=== PATIENT | male | born 1990 | race Native Hawaiian/Other Pacific Islander ===

== ENCOUNTER 2016-04-08 18:11 | Inpatient (IN) | payer OTHER ==
[~2016-04-08] VITALS: Ht 170.2 cm; Wt 64.0 kg
[2016-04-08 18:29] VITALS: BP 112/77; PULSE 67; RESP 16; TEMP 98.6; O2SAT 98
[2016-04-08] MEDS ORDERED: SODIUM CHLORIDE 0.9% FLUSH 5 ML FLUSH IVF PRN (18:45)
[2016-04-08] MEDS ORDERED: MORPHINE SULFATE 4 MG/ML INJ IV ONE (18:45)
[2016-04-08] MEDS ORDERED: ONDANSETRON HCL 4 MG/2 ML VIAL IV PUSH ONE (18:45)
[2016-04-08 19:10] VITALS: BP 124/68; PULSE 60; RESP 16; TEMP 97.8; O2SAT 98; O2SAT 99
[2016-04-08 19:19] LABS: AUTOMATED NEUTROPHIL # 2.4 TH/MM3 (1.8-7.7); BASOPHIL # 0.1 TH/MM3 (0-0.2); BASOPHIL % 1.6 % (0.0-2.0); EOSINOPHIL # 0.2 TH/MM3 (0-0.4); EOSINOPHIL % 3.7 % (0.0-4.0); HEMATOCRIT 42.1 % (39.0-51.0); HEMO FLAGS DIFF FINAL; LYMPH % 38.4 % (9.0-44.0); MEAN CELL VOLUME 88.1 FL (80.0-100.0); MEAN CORPUSCULAR HEMOGLOBIN 30.3 PG (27.0-34.0); MEAN CORPUSCULAR HGB CONC 34.4 % (32.0-36.0); NEUT % 47.3 % (16.0-70.0); PLATELET COUNT 184 TH/MM3 (150-450); RED BLOOD COUNT 4.78 MIL/MM3 (4.50-5.90); RED CELL DISTRIBUTION WIDTH 12.2 % (11.6-17.2); WHITE BLOOD COUNT 5.2 TH/MM3 (4.0-11.0)
--- NOTE | 2016-04-08 19:24 | RADHPO ---
EXAM DATE/TIME: 04/08/2016 18:50 [facility] COMPARISON: No previous studies available for comparison. INDICATIONS : Short of breath. MEDICAL HISTORY : None. SURGICAL HISTORY : None. ENCOUNTER: Initial ACUITY: 1 day PAIN SCORE: 0/10 LOCATION: Bilateral chest FINDINGS: A single view of the chest demonstrates the lungs to be symmetrically aerated without evidence of mas s, infiltrate or effusion. Minimal basilar atelectasis. The cardiomediastinal contours are unremarka ble. Osseous structures are intact. CONCLUSION: 1. Minimal basilar atelectasis. Jv Beckford MD on April 08, 2016 at 19:22 Board Certified Radiologist. This report was verified electronically.
[2016-04-08 19:26] LABS: POTASSIUM 4.1 MEQ/L (3.5-5.1)
[2016-04-08 19:29] LABS: BICARBONATE 26.9 MEQ/L (21.0-32.0)
[2016-04-08 19:32] LABS: APTT (PATIENT) 27.1 SEC (24.3-30.1); PROTHROMBIN TIME - PATIENT 10.7 SEC (9.8-11.6)
[2016-04-08] MEDS ORDERED: IOHEXOL 350 MG/ML 10 ML VIAL (for RAD DIAG) IV ONE (19:54)
--- NOTE | 2016-04-08 19:59 | PD ---
HPI . Neck injury Chief Complaint: Back/ Neck Pain or Injury Time Seen by Provider: 18:41 Travel History International Travel<30 days: No Contact w/Intl Traveler<30days: No Traveled to known affect area: No History of Present Illness HPI Patient presented ambulatory following a neck injury. It happened about 3 PM. He was jumping on a trampoline and landed on his head with his neck flexed. He states that he heard and felt some crackling noises. He immediately developed numbness and tingling in his left upper extremity. The tingling is improved but he still has tingling in his fingertips. He denies any loss of consciousness or any other symptoms of head injury. He denies any other injuries. [facility] Past Medical History Medical History: Denies Significant Hx Social History Alcohol Use: No Tobacco Use: Yes (/2 PPD) Allergies-Medications (Allergen,Severity, Reaction): Coded Allergies: No Known Allergies (Unverified , 04/08/16) Reported Meds & Prescriptions Reported Meds & Active Scripts Active No Active Prescriptions or Reported Medications Review of Systems Except as stated in HPI: all other systems reviewed are Neg Musculoskeletal: Positive: Pain (neck and upper back pain) Neurologic: Positive: Paresthesia Physical Exam Narrative GENERAL: Healthy-appearing young man in no acute distress. SKIN: Warm and dry. HEAD: Atraumatic. Normocephalic. EYES: Pupils equal and round. ENT: No nasal bleeding or discharge. Mucous membranes pink and moist. NECK: Trachea midline. Neck is immobilized with a [place] collar. CARDIOVASCULAR: Regular rate and rhythm. Heart sounds are normal. RESPIRATORY: No accessory muscle use. Lungs are clear throughout. GASTROINTESTINAL: Abdomen soft, non-tender, nondistended. MUSCULOSKELETAL: No obvious deformities. No edema. NEUROLOGICAL: Awake and alert. No obvious cranial nerve deficits. He has weakness in all muscle groups of the left upper extremity. Normal speech. PSYCHIATRIC: Appropriate mood and affect; insight and judgment normal. Data Data Last Documented VS Vital Signs Date Time Temp Pulse Resp B/P Pulse Ox O2 Delivery O2 Flow Rate FiO2 04/08/16 21:10 58 16 114/70 99 Room Air 04/08/16 19:[address] Cerv Spine W/O Contrast (04/08/16 18:41) ^ Saline Lock (04/08/16 18:41) Morphine Inj (Morphine Inj) (04/08/16 18:45) Ondansetron Inj (Zofran Inj) (04/08/16 18:45) Basic Metabolic Panel (Bmp) (04/08/16 18:41) Complete Blood Count With Diff (04/08/16 18:41) Prothrombin Time / Inr (Pt) (04/08/16 18:41) Act Partial Throm Time (Ptt) (04/08/16 18:41) Type And Screen (04/08/16 18:41) Chest, Single Ap (04/08/16 18:41) Ct Brain W/O Iv Contrast(Rout) (04/08/16 18:41) Ct Thorax/ Chest W Iv Contrast (04/08/16 18:41) Apply Cervical Collar (04/08/16 18:41) Iv Access Insert/Monitor (04/08/16 18:41) Ecg Monitoring (04/08/16 18:41) Oximetry (04/08/16 18:41) Sodium Chloride 0.9% Flush (Ns Flush) (04/08/16 18:45) Labs Laboratory Tests Test 04/08/16 19:10 White Blood Count 5.2 TH/MM3 Red Blood Count 4.78 MIL/MM3 Hemoglobin 14.5 GM/DL Hematocrit 42.1 % Mean Corpuscular Volume 88.1 FL Mean Corpuscular Hemoglobin 30.3 PG Mean Corpuscular Hemoglobin 34.4 % Concent Red Cell Distribution Width 12.2 % Platelet Count 184 TH/MM3 Mean Platelet Volume 8.6 FL Neutrophils (%) (Auto) 47.3 % Lymphocytes (%) (Auto) 38.4 % Monocytes (%) (Auto) 9.0 % Eosinophils (%) (Auto) 3.7 % Basophils (%) (Auto) 1.6 % Neutrophils # (Auto) 2.4 TH/MM3 Lymphocytes # (Auto) 2.0 TH/MM3 Monocytes # (Auto) 0.5 TH/MM3 Eosinophils # (Auto) 0.2 TH/MM3 Basophils # (Auto) 0.1 TH/MM3 CBC Comment DIFF FINAL Differential Comment Prothrombin Time 10.7 SEC Prothromb Time International 1.0 RATIO Ratio Activated Partial 27.1 SEC Thromboplast Time Sodium Level 142 MEQ/L Potassium Level 4.1 MEQ/L Chloride Level 107 MEQ/L Carbon Dioxide Level 26.9 MEQ/L Anion Gap 8 MEQ/L Blood Urea Nitrogen 18 MG/DL Creatinine 0.98 MG/DL Estimat Glomerular Filtration 92 ML/MIN Rate Random Glucose 81 MG/DL Calcium Level 8.5 MG/DL Blood Type O POSITIVE Antibody Screen NEGATIVE Blood Bank Comment MDM Medical Decision Making Medical Screen Exam Complete: Yes Emergency Medical Condition: Yes Differential Diagnosis Differential diagnosis includes but is not limited to cervical strain, cervical fracture, cord injury Narrative Course Patient presents for evaluation of a neck injury. He demonstrates weakness in the left upper extremity. CBC & BMP Diagram 04/08/16 19:[address] 04/08/161840 Signed Impressions: Service Date/Time: Friday, April 08, 2016 19:48 - CONCLUSION: Normal examination for a patient of this age. Jv Beckford MD Chest X-Ray 04/08/161840 Signed Impressions: Service Date/Time: Friday, April 08, 2016 18:50 - CONCLUSION: 1. Minimal basilar atelectasis. Jv Beckford MD Chest CT 04/08/161840 Signed Impressions: Service Date/Time: Friday, April 08, 2016 19:54 - CONCLUSION: 1. No acute findings. Minimal dependent atelectasis in the lungs. Jv Beckford MD Cervical Spine CT 04/08/161840 Signed Impressions: Service Date/Time: Friday, April 08, 2016 19:48 - CONCLUSION: 1. Fracture of superior articular facet of C7 extending through the left transverse process with mild subluxation of the C6 facet on C7 and a minimal anterolisthesis of C6 on C7. No associated bony canal stenosis or vertebral body fracture. Jv Beckford MD Physician Communication Physician Communication Discussed with Dr. Dotson who defers to neurosurgery as it is an isolated injury. Discussed with Dr. Bolden who asked the I send the patient to [facility]. Diagnosis Primary Impression: Cervical spine fracture Qualified Code: S12.691A - Other closed nondisplaced fracture of seventh cervical vertebra, initial encounter Admitting Information Admitting Physician Requests: Admit Scripts No Active Prescriptions or Reported Meds Condition: Stable Jaylyn Osborn MD Apr 08, 2016 19:58
[2016-04-08 20:10] VITALS: BP 111/61; PULSE 60; RESP 16; O2SAT 99
--- NOTE | 2016-04-08 21:08 | RADHPO ---
EXAM DATE/TIME: 04/08/2016 19:48 [facility] COMPARISON: No previous studies available for comparison. INDICATIONS : Fall. Posterior head and neck trauma. RADIATION DOSE: 71.29 CTDIvol (mGy) MEDICAL HISTORY : None SURGICAL HISTORY : None. ENCOUNTER: Initial ACUITY: 1 day PAIN SCALE: 8/10 LOCATION: occipital TECHNIQUE: Multiple contiguous axial images were obtained of the head. Using automated exposure control and adj ustment of the mA and/or kV according to patient size, radiation dose was kept as low as reasonably a chievable to obtain optimal diagnostic quality images. FINDINGS: CEREBRUM: The ventricles are normal for age. No evidence of midline shift, mass lesion, hemorrhage or acute in farction. No extra-axial fluid collections are seen. POSTERIOR FOSSA: The cerebellum and brainstem are intact. The 4th ventricle is midline. The cerebellopontine angle i s unremarkable. EXTRACRANIAL: The visualized portion of the orbits is intact. SKULL: The calvaria is intact. No evidence of skull fracture. CONCLUSION: Normal examination for a patient of this age. Jv Beckford MD on April 08, 2016 at 21:05 Board Certified Radiologist. This report was verified electronically.
[2016-04-08 21:10] VITALS: BP 114/70; PULSE 58; RESP 16; O2SAT 99
--- NOTE | 2016-04-08 21:11 | RADHPO ---
EXAM DATE/TIME: 04/08/2016 19:54 [facility] COMPARISON: No previous studies available for comparison. INDICATIONS : Upper back pain with shortness of breath. IV CONTRAST: 90 cc Omnipaque 350 (iohexol) IV RADIATION DOSE: 6.49 CTDIvol (mGy) MEDICAL HISTORY : None SURGICAL HISTORY : None. ENCOUNTER: Initial ACUITY: 1 day PAIN SCALE: 8/10 LOCATION: chest TECHNIQUE: Volumetric scanning of the chest was performed. Using automated exposure control and adjustment of t he mA and/or kV according to patient size, radiation dose was kept as low as reasonably achievable to obtain optimal diagnostic quality images. FINDINGS: LUNGS: There is no consolidation or pneumothorax. No concerning pulmonary nodule is visualized. PLEURA: There is no pleural thickening or pleural effusion. MEDIASTINUM: The heart and great vessels demonstrate no acute abnormality. There is no mediastinal or hilar lymph adenopathy. AXILLAE: Within normal limits. No lymphadenopathy. SKELETAL: Within normal limits for patient age. MISCELLANEOUS: The visualized upper abdominal organs demonstrate no acute abnormality. CONCLUSION: 1. No acute findings. Minimal dependent atelectasis in the lungs. Jv Beckford MD on April 08, 2016 at 21:06 Board Certified Radiologist. This report was verified electronically.
--- NOTE | 2016-04-08 21:17 | RADHPO ---
EXAM DATE/TIME: 04/08/2016 19:48 [facility] COMPARISON: No previous studies available for comparison. INDICATIONS : Fall. Posterior head and neck trauma. RADIATION DOSE: 26.47 CTDIvol (mGy) MEDICAL HISTORY : None SURGICAL HISTORY : None. ENCOUNTER: Initial ACUITY: 1 day PAIN SCALE: 8/10 LOCATION: Posterior neck. TECHNIQUE: Volumetric scanning of the cervical spine was performed. Multiplanar reconstructions in the sagittal, coronal and oblique axial planes were performed. Using automated exposure control and adjustment o f the mA and/or kV according to patient size, radiation dose was kept as low as reasonably achievable to obtain optimal diagnostic quality images. FINDINGS: There is a fracture through the superior articular facet of C7 on the left side extending into the le ft transverse process. There is some forward subluxation of the C6 facet on C7 on the left side and t here is a minimal anterolisthesis of C6 on C7 at the vertebral body. No bony canal stenosis. No verte bral body fractures identified. CONCLUSION: 1. Fracture of superior articular facet of C7 extending through the left transverse process with mild subluxation of the C6 facet on C7 and a minimal anterolisthesis of C6 on C7. No associated bony john l stenosis or vertebral body fracture. Jv Beckford MD on April 08, 2016 at 21:10 Board Certified Radiologist. This report was verified electronically.
[2016-04-08] MEDS ORDERED: HYDROmorphone HCL PF 2 MG/ML VIAL IV PUSH ONE (22:00)
[2016-04-08 22:10] VITALS: BP 120/82; PULSE 82; RESP 18; O2SAT 97
[2016-04-08 23:08] VITALS: BP 124/69; PULSE 80; RESP 18; O2SAT 96
[2016-04-08] MEDS ORDERED: SODIUM CHLORIDE 0.9% FLUSH 5 ML FLUSH IV FLUSH PRN (23:15)
[2016-04-09] VITALS (7 sets, daily range): BP systolic 93–124; BP diastolic 46–73; PULSE 59–70; RESP 16–18; TEMP 96.6–98.1; O2SAT 93–98
[2016-04-09] MEDS: SODIUM CHLOR 0.9% 1000 ML INJ 1,000 ML IV SCH ×2 (00:14→12:34)
[2016-04-09] MEDS: IBUPROFEN 400 MG TAB PO SCH ×6 (00:15→19:53)
[2016-04-09] MEDS: oxyCODONE/ACETAMINOPHEN 5 MG/325 MG TAB PO PRN ×5 (00:26→19:53)
[2016-04-09] MEDS: CYCLOBENZAPRINE HCL 10 MG TAB PO SCH ×3 (06:21→21:38)
[2016-04-09] MEDS: SODIUM CHLORIDE 0.9% FLUSH 5 ML FLUSH IV FLUSH SCH ×2 (07:59→19:55)
[2016-04-09] MEDS: GABAPENTIN 300 MG CAP PO SCH ×2 (07:59→21:38)
--- NOTE | 2016-04-09 13:28 | RADRPT ---
EXAM DATE/TIME: 04/09/2016 12:50 [facility] COMPARISON: CT CERVICAL SPINE W/O CONTRAST, April 08, 2016, 19:48. INDICATIONS : Trauma. Abnormal CT. MEDICAL HISTORY : None. SURGICAL HISTORY : Right shoulder ORIF. ENCOUNTER: Initial ACUITY: 1 day PAIN SCORE: 4/10 LOCATION: neck TECHNIQUE: Multiplanar, multisequence MRI examination of the cervical spine was performed. FINDINGS: . VERTEBRAE: Patient has a known fracture through the left facet at C7. There appears to be normal signal in the c ervical vertebral bodies throughout the cervical spine. No abnormal bone marrow edema is demonstrated . There is some increased signal associated with the nondisplaced fracture through the C7 left facet. ALIGNMENT: There is mild grade 1 anterior spondylolisthesis of C6 over C7. CORD: Normal configuration and signal. POST FOSSA: The cerebellar tonsils are normal in position. C2-C3: The thecal sac has a normal configuration. There is no evidence of disc herniation or spinal canal s tenosis. The neural foramina are patent bilaterally. C3-C4: The thecal sac has a normal configuration. There is no evidence of disc herniation or spinal canal s tenosis. The neural foramina are patent bilaterally. C4-C5: The thecal sac has a normal configuration. There is no evidence of disc herniation or spinal canal s tenosis. The neural foramina are patent bilaterally. C5-C6: The thecal sac has a normal configuration. There is no evidence of disc herniation or spinal canal s tenosis. The neural foramina are patent bilaterally. C6-C7: There is diffuse broad-based bulging. The neural foramina are patent bilaterally. C7-T1: The thecal sac has a normal configuration. There is no evidence of disc herniation or spinal canal s tenosis. The neural foramina are patent bilaterally. CONCLUSION: 1. There is a known fracture through the C7 left facet. 2. Grade 1 anterior spondylolisthesis of C6 over C7 3. Mild broad-based bulging at C6-7 Dk Oscar MD on April 09, 2016 at 13:21 Board Certified Radiologist. This report was verified electronically.
--- NOTE | 2016-04-09 15:25 | HHI.HP ---
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 He presented to the ED with numbness in the entire left arm and severe neck pain. A CT of the cervical spine showed a left C7 lateral mass fx. GCS is 15. He has no previous head injury or neurologic problems. His gait and strength are preserved. Review of Systems Constitutional: DENIES: Diaphoretic episodes, Fatigue, Fever, Weight gain, Weight loss, Chills, Dizziness, Change in appetite, Night Sweats Endocrine: DENIES: Heat/cold intolerance, Polydipsia, Polyuria, Polyphagia Eyes: DENIES: Blurred vision, Diplopia, Eye inflammation, Eye pain, Vision loss , Photosensitivity, Double Vision Ears, nose, mouth, throat: DENIES: Tinnitus, Hearing loss, Vertigo, Nasal discharge, Oral lesions, Throat pain, Hoarseness, Ear Pain, Running Nose, Epistaxis, Sinus Pain, Toothache, Odynophagia Respiratory: DENIES: Apneas, Cough, Snoring, Wheezing, Hemoptysis, Sputum production, Shortness of breath Cardiovascular: DENIES: Chest pain, Palpitations, Syncope, Dyspnea on Exertion , PND, Lower Extremity Edema, Orthopnea, Claudication Gastrointestinal: DENIES: Abdominal pain, Black stools, Bloody stools, Constipation, Diarrhea, Nausea, Vomiting, Difficulty Swallowing, Anorexia Genitourinary: DENIES: Sexual dysfunction, Urinary frequency, Urinary incontinence, Urgency, Hematuria, Dysuria, Nocturia, Penile Discharge, Testicular Pain, Testicular Swelling Musculoskeletal: COMPLAINS OF: Neck pain, DENIES: Joint pain, Muscle aches, Stiffness, Joint Swelling, Back pain Integumentary: DENIES: Abnormal pigmentation, Nail changes, Pruritus, Rash Hematologic/lymphatic: DENIES: Bruising, Lymphadenopathy Immunologic/allergic: DENIES: Eczema, Urticaria Neurologic: COMPLAINS OF: Paresthesias Psychiatric: DENIES: Anxiety, Confusion, Mood changes, Depression, Hallucinations, Agitation, Suicidal Ideation, Homicidal Ideation, Delusions Past Family Social History Allergies: Coded Allergies: No Known Allergies (Unverified , 04/08/16) Past Medical History none Past Surgical History Right shoulder surgery Reported Medications Reported Meds & Active Scripts Active No Active Prescriptions or Reported Medications Family History Mother is , father is alive and well, no hx of anesthesia pbs, hematologic, or neurologic pbs Social History Student at [employer], positive tobacco, Physical Exam Vital Signs Vital Signs Date Time Temp Pulse Resp B/P Pulse Ox O2 Delivery O2 Flow Rate FiO2 04/09/16 11:29 97.4 63 16 112/58 98 04/09/16 07:34 97.0 67 16 111/55 96 04/09/16 04:00 96.6 70 16 93/46 96 04/09/16 00:30 98.1 70 16 124/73 93 04/08/16 23:08 80 18 124/69 96 Room Air 04/08/16 22:10 82 18 120/82 97 Room Air 04/08/16 21:10 58 16 114/70 99 Room Air 04/08/16 20:21 16 04/08/16 20:10 60 16 111/61 99 Room Air 04/08/16 19:10 97.8 60 16 124/68 98 Room Air 04/08/16 19:10 16 04/08/16 19:10 99 Room Air 04/08/16 18:29 98.6 67 16 112/77 98 Physical Exam Alert and oriented x3, speech fluent attention intact, face symmetric,[place] collar fitting well. EOMI, conjugate eye movement. Motor 5/5 in both delt/bic/tri/IO/HF/quads/gastroc evi Senory changes in C6, C7, T1 distribution. DTRs are intact in the bic/tri/patella evi Skin warm and dry, no rashes, no abrasions. RRR, lungs CTA, abd soft, NT Laboratory Laboratory Tests Test 04/08/16 19:10 White Blood Count 5.2 Red Blood Count 4.78 Hemoglobin 14.5 Hematocrit 42.1 Mean Corpuscular Volume 88.1 Mean Corpuscular Hemoglobin 30.3 Mean Corpuscular Hemoglobin 34.4 Concent Red Cell Distribution Width 12.2 Platelet Count 184 Mean Platelet Volume 8.6 Neutrophils (%) (Auto) 47.3 Lymphocytes (%) (Auto) 38.4 Monocytes (%) (Auto) 9.0 Eosinophils (%) (Auto) 3.7 Basophils (%) (Auto) 1.6 Neutrophils # (Auto) 2.4 Lymphocytes # (Auto) 2.0 Monocytes # (Auto) 0.5 Eosinophils # (Auto) 0.2 Basophils # (Auto) 0.1 CBC Comment DIFF FINAL Differential Comment Prothrombin Time 10.7 Prothromb Time International 1.0 Ratio Activated Partial 27.1 Thromboplast Time Sodium Level 142 Potassium Level 4.1 Chloride Level 107 Carbon Dioxide Level 26.9 Anion Gap 8 Blood Urea Nitrogen 18 Creatinine 0.98 Estimat Glomerular Filtration 92 Rate Random Glucose 81 Calcium Level 8.5 Blood Type O POSITIVE Antibody Screen NEGATIVE Blood Bank Comment Result Diagram: 04/08/16190904/08/161909 Imaging Last Impressions Cervical Spine MRI 04/09/16 0000 Signed Impressions: Service Date/Time: Saturday, April 09, 2016 12:50 - CONCLUSION: 1. There is a known fracture through the C7 left facet. 2. Grade 1 anterior spondylolisthesis of C6 over C7 3. Mild broad-based bulging at C6-7 Dk Oscar MD Head CT 04/08/161840 Signed Impressions: Service Date/Time: Friday, April 08, 2016 19:48 - CONCLUSION: Normal examination for a patient of this age. Jv Beckford MD Chest X-Ray 04/08/161840 Signed Impressions: Service Date/Time: Friday, April 08, 2016 18:50 - CONCLUSION: 1. Minimal basilar atelectasis. Jv Beckford MD Chest CT 04/08/161840 Signed Impressions: Service Date/Time: Friday, April 08, 2016 19:54 - CONCLUSION: 1. No acute findings. Minimal dependent atelectasis in the lungs. Jv Beckford MD Cervical Spine CT 04/08/161840 Signed Impressions: Service Date/Time: Friday, April 08, 2016 19:48 - CONCLUSION: 1. Fracture of superior articular facet of C7 extending through the left transverse process with mild subluxation of the C6 facet on C7 and a minimal anterolisthesis of C6 on C7. No associated bony canal stenosis or vertebral body fracture. Jv Beckford MD Assessment and Plan Diagnosis: (1) Cervical spine fracture ICD Code: S12.9XXA Assessment and Plan C7 lateral mass fx associated with a small bulging disc at C6/7 and a few mm listhesis. Plan cervical collar for 4 weeks at least, no lifting greater than 5 lbs, no driving, no jarring. Cervical fusion is planned if the subluxation increases or the pain increases. Pain management overnight with muscle relaxers and a low dose gabapentin has helped. PT/OT evaluation is requested. Problem Qualifiers (1) Cervical spine fracture: Qualified Code: S12.691A - Other closed nondisplaced fracture of seventh cervical vertebra, initial encounter Cristian Bolden Apr 09, 2016 15:25
[2016-04-10 00:20] VITALS: BP 107/57; PULSE 59; RESP 17; TEMP 97.1; O2SAT 97
[2016-04-10] MEDS: oxyCODONE/ACETAMINOPHEN 5 MG/325 MG TAB PO PRN ×3 (00:26→10:19)
[2016-04-10] MEDS: IBUPROFEN 400 MG TAB PO SCH ×3 (00:27→07:33)
[2016-04-10] MEDS ORDERED: IOHEXOL 350 MG/ML 10 ML VIAL (for RAD DIAG) IV ONE (04:11)
[2016-04-10] MEDS: CYCLOBENZAPRINE HCL 10 MG TAB PO SCH (06:07)
[2016-04-10] MEDS: GABAPENTIN 300 MG CAP PO SCH (07:32)
[2016-04-10 07:38] VITALS: BP 106/56; PULSE 64; RESP 16; TEMP 96.9; O2SAT 98
[2016-04-10] MEDS ORDERED: NEUR300C PO (08:57)
[2016-04-10] MEDS ORDERED: IBUP400T20 PO (08:57)
[2016-04-10] MEDS ORDERED: CYCL1TAB29 PO (08:57)
[2016-04-10] MEDS ORDERED: OXYC1TAB63 PO (08:57)
--- NOTE | 2016-04-10 09:01 | HHI.DS ---
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 He presented to the ED with numbness in the entire left arm and severe neck pain. A CT of the cervical spine showed a left C7 lateral mass fx. GCS is 15. He has no previous head injury or neurologic problems. His gait and strength are preserved. CBC/BMP: 04/08/16190904/08/161909 Significant Findings Laboratory Tests Test 04/08/16 19:10 Monocytes (%) (Auto) 9.0 % (0.0-8.0) Hospital Course 26 yr old presented after a flexion injury on the trampoline, has a left C7 bulging disc and lateral mass fx. He is doing well neurologically but has a left C6/7 radiculopathy and neck pain. Pt Condition on Discharge: Good Discharge Disposition: Discharge Home Discharge Instructions DIET: Follow Instructions for: As Tolerated, No Restrictions, Heart Healthy Diet Speech Therapy-Diet Recommenda: Regular ACTIVITIES You can perform: Weight Bearing As Josiah Activities to Avoid: Concussion Sports, Contact Sports, Lifting/Bending, Strenuous Activity, Driving Follow up Referrals: Neurosurgery - 1 Week @ [facility] New Medications: Cyclobenzaprine (Flexeril) 10 Mg Tab 10 MG PO Q8HR PRN muscle spasms #90 Ref 3 TAB Gabapentin (Neurontin) 300 Mg Cap 300 MG PO BID PRN nerve pain #60 Ref 1 CAP Ibuprofen (Ibuprofen) 400 Mg Tab 400 MG PO Q4HR PRN pain #45 Ref 3 TAB Oxycodone-Acetaminophen (Oxycodone-Acetaminophen) 5-325 mg Tab 1 TAB PO Q4H PRN PAIN SCALE 1 TO 5 #40 Ref 0 TAB Cristian Bolden Apr 10, 2016 09:01
[2016-04-10 11:54] VITALS: BP 102/55; PULSE 61; RESP 16; TEMP 96.4; O2SAT 97
[2016-05-15] MEDS ORDERED: NEUR300C PO (14:05)
== END 2016-04-10 13:28 | disposition home or self-care (01) | DRG 552 ==
LOC: PHED 18:11 → PHEDA 21:42 → N06A 23:36
PROVIDERS: ADMIT Neurological Surgery; ATTEND Neurological Surgery
DX: S12.601A Unspecified nondisplaced fracture of seventh cervical vertebra, initial encounter for closed fracture (principal); M54.12 Radiculopathy, cervical region; S13.170A Subluxation of C6/C7 cervical vertebrae, initial encounter; F17.210 Nicotine dependence, cigarettes, uncomplicated; W01.0XXA Fall on same level from slipping, tripping and stumbling without subsequent striking against object, initial encounter; Y93.44 Activity, trampolining
CPT/HCPCS: 70450; 71010; 71260; 72125; 72141; 80048; 85025; 85610; 85730; 86850; 86900; 86901; 96374; 96375; J1170; J2270; J2405; J7030; L0150; L0172; Q9967

== ENCOUNTER 2017-03-15 12:33 | Emergency (ER) | payer OTHER ==
[~2017-03-15 12:33] MED LIST: CYCL10TA PO; IBUP1TAB5 PO; NEUR300C PO; OXYC1TAB63 PO
[2017-03-15 12:36] VITALS: BP 149/72; PULSE 88; RESP 20; TEMP 98.5; O2SAT 96
--- NOTE | 2017-03-15 12:41 | PD ---
HPI Chief Complaint: Cold / Flu Symptoms Time Seen by Provider: 12:41 Travel History International Travel<30 days: Yes Contact w/Intl Traveler<30days: Yes Name of Country Traveled to: travel from [facility] 4 days ago Traveled to known affect area: No History of Present Illness HPI This is a 26-year-old male who traveled here recently from [facility]. He presents for evaluation of cough, congestion, fevers, chills, myalgias, ear pain. Symptoms started 3-4 days ago. Cough is productive with clear and yellow sputum production. He reports that the maximum temperature at home was 39C. He has been using [id number] cough and cold medications. Denies sick contacts. Denies abdominal pain, nausea or vomiting. He endorses tobacco use. He has no other complaints at this time. PFSH Past Medical History Cancer: No Cardiovascular Problems: No Diabetes: No Endocrine: No Genitourinary: No Immune Disorder: No Musculoskeletal: No Neurologic: No Psychiatric: No Respiratory: No Thyroid Disease: No Social History Alcohol Use: No Tobacco Use: Yes (02/27 PPD) Substance Use: No Allergies-Medications (Allergen,Severity, Reaction): Coded Allergies: No Known Allergies (Unverified Adverse Reaction, Unknown, 03/15/17) Reported Meds & Prescriptions Reported Meds & Active Scripts Active Tessalon Perles (Benzonatate) 100 Mg Cap 200 Mg PO TID PRN Augmentin (Amoxicillin-Clavulanate) 875-125 Mg Tab 1 Tab PO BID 10 Days Proair Hfa 8.5 GM Inh (Albuterol Sulfate) 90 Mcg/Act Aer 2 Puff INH Q4-6H PRN 108 mcg/actuation Prednisone 20 Mg Tab 20 Mg PO BID 5 Days Review of Systems Except as stated in HPI: all other systems reviewed are Neg Physical Exam Narrative GENERAL: Well-nourished male in no acute distress SKIN: Warm and dry. HEAD: Atraumatic. Normocephalic. EYES: Pupils equal and round. No scleral icterus. No injection or drainage. ENT: No nasal bleeding or discharge. Mucous membranes pink and moist. No oral pharyngeal erythema or exudate. Left tympanic membrane is bulging and erythematous. NECK: Trachea midline. No JVD. No lymphadenopathy. Neck supple full range of motion. CARDIOVASCULAR: Regular rate and rhythm. No murmur appreciated. RESPIRATORY: No accessory muscle use. Bilateral wheezing noted. No crackles. GASTROINTESTINAL: Abdomen soft, non-tender, nondistended. Hepatic and splenic margins not palpable. Data Data Last Documented VS Vital Signs Date Time Temp Pulse Resp B/P (MAP) Pulse Ox O2 Delivery O2 Flow Rate FiO2 03/15/17 12:36 98.5 88 20 149/72 (97) 96 Orders Orders Influenzae A/B Antigen (03/15/17 12:45) Acetaminophen (Tylenol) (03/15/17 12:45) Prednisone (Deltasone) (03/15/17 12:45) Albuterol-Ipratropium Neb (Duoneb Neb) (03/15/17 12:45) Chest, Single Ap (03/15/17 ) Ed Discharge Order (03/15/17 13:28) [facility] Medical Decision Making Medical Screen Exam Complete: Yes Emergency Medical Condition: Yes Medical Record Reviewed: Yes Differential Diagnosis Influenza, [place] respiratory syndrome, bronchitis, reactive airway disease , pneumonia Narrative Course 26 year old male presents with 3-4 days of cough, congestion, sore throat, fevers. On examination he has mild wheezing bilaterally. He appears well. Plan is for chest x-ray, influenza antigen test. He will be given Tylenol, prednisone, DuoNeb treatment. Chest x-ray is normal. Influenza antigen is negative. [place] respiratory syndrome was considered in the differential however highly unlikely given the negative radiographic findings. The patient does have left otitis media. He will be discharged with Augmentin, prednisone, albuterol, Tessalon. Discussed signs and symptoms that would warrant returning to the emergency room. Diagnosis Primary Impression: Left otitis media Additional Impression: Bronchitis Additional Instructions: Avoid tobacco products. Medication as prescribed. Stay well hydrated well- nourished, get plenty of rest. Follow-up with primary care physician and return for any acutely new or worsening symptoms. Med/Other Pt SpecificInfo: Prescription(s) given Scripts Benzonatate (Tessalon Perles) 100 Mg Cap 200 MG PO TID Y for COUGH, #30 CAP 0 Refills Prov: Josh Rico MD 03/15/17 Amoxicillin-Clavulanate (Augmentin) 875-125 Mg Tab 1 TAB PO BID for Infection for 10 Days, #20 TAB 0 Refills Prov: Josh Rico MD 03/15/17 Albuterol 8.5 GM Inh (Proair Hfa 8.5 GM Inh) 90 Mcg/Act Aer 2 PUFF INH Q4-6H Y for SHORTNESS OF BREATH, #1 INHALER 0 Refills 108 mcg/actuation Prov: Josh Rico MD 03/15/17 Prednisone (Prednisone) 20 Mg Tab 20 MG PO BID for 5 Days, #10 TAB 0 Refills Prov: Josh Rico MD 03/15/17 Disposition: 01 DISCHARGE HOME Condition: Stable Greg Jon Mar 15, 2017 12:41
[2017-03-15] MEDS ORDERED: predniSONE 20 MG TAB PO ONE (12:45)
[2017-03-15] MEDS ORDERED: ACETAMINOPHEN 325 MG TAB PO ONE (12:45)
--- NOTE | 2017-03-15 13:22 | RADRPT ---
EXAM DATE/TIME: 03/15/2017 12:52 [place] COMPARISON: No previous studies available for comparison. INDICATIONS : Cough and chest pain for four days. MEDICAL HISTORY : None. SURGICAL HISTORY : None. ENCOUNTER: Initial ACUITY: 4 - 6 days PAIN SCORE: 2/10 LOCATION: Bilateral chest FINDINGS: A single view of the chest demonstrates the lungs to be symmetrically aerated without evidence of mas s, infiltrate or effusion. The cardiomediastinal contours are unremarkable. Osseous structures are intact. CONCLUSION: Normal examination. Colten Massey MD on March 15, 2017 at 13:20 Board Certified Radiologist. This report was verified electronically.
[2017-03-15] MEDS ORDERED: AUGM875T3 PO (13:28)
[2017-03-15] MEDS ORDERED: ALBUAER3 INH (13:28)
[2017-03-15] MEDS ORDERED: PRED20 PO (13:28)
[2017-03-15] MEDS ORDERED: BENZ100 PO (13:28)
[2017-03-15] MEDS: RESP: ALBUTEROL 2.5 MG/IPRATROPIUM 0.5 MG NEB (SCH) INH ×2 (13:30→13:32)
== END 2017-03-15 14:06 | disposition home or self-care (01) ==
LOC: PHEFT 12:33
DX: H66.92 Otitis media, unspecified, left ear (principal); J40 Bronchitis, not specified as acute or chronic; F17.200 Nicotine dependence, unspecified, uncomplicated
CPT/HCPCS: 71045; 87804; 94640; 94664; 99284; J7512

== ENCOUNTER 2017-07-31 06:46 | Emergency (ER) | payer OTHER ==
[~2017-07-31 06:46] MED LIST changes: +ALBUAER3 INH; +AUGM875T3 PO; +BENZ100 PO; -CYCL10TA PO; -IBUP1TAB5 PO; -NEUR300C PO; -OXYC1TAB63 PO; +PRED20 PO
[2017-07-31 06:48] VITALS: BP 109/67; PULSE 67; RESP 18; TEMP 98.1
[2017-07-31] MEDS ORDERED: KETOROLAC TROMETHAMINE 60 MG/2 ML (IM) VIAL IM ONE (07:30)
[2017-07-31] MEDS ORDERED: ORPHENADRINE INJ 60 MG/2 ML AMP IM ONE (07:30)
[2017-07-31] MEDS ORDERED: DEXAMETHASONE SOD PHOS 20 MG/5 ML VIAL IM ONE (07:30)
--- NOTE | 2017-07-31 07:35 | PD ---
HPI Chief Complaint: Back/ Neck Pain or Injury Time Seen by Provider: 07:14 Travel History International Travel<30 days: No Contact w/Intl Traveler<30days: No Traveled to known affect area: No History of Present Illness HPI Patient is a 27-year-old male presenting to emerge from for evaluation of back pain. Patient reports that he has been working out, the pain started yesterday progressively getting worse overnight. He states the pain is a 9 out of 10, cramping and aching in nature. The pain is constant, there are no alleviating factors, is exacerbated with movement. Additionally patient is currently fasting for Ramada and has not been eating or drinking throughout the day however he continues to workout. He is unsure if his urine appears dark. He denies any abdominal pain, chest pain, shortness of breath, fever, chills. PFSH Past Medical History Medical History: Denies Significant Hx Cancer: No Cardiovascular Problems: No Diabetes: No Endocrine: No Genitourinary: No Immune Disorder: No Musculoskeletal: No Neurologic: No Psychiatric: No Respiratory: No Thyroid Disease: No Past Surgical History Other Surgery: Yes Social History Alcohol Use: No Tobacco Use: Yes (02/27 PPD) Substance Use: No Allergies-Medications (Allergen,Severity, Reaction): Coded Allergies: No Known Allergies (Unverified Adverse Reaction, Unknown, 07/31/17) Reported Meds & Prescriptions Reported Meds & Active Scripts Active Tessalon Perles (Benzonatate) 100 Mg Cap 200 Mg PO TID PRN Augmentin (Amoxicillin-Clavulanate) 875-125 Mg Tab 1 Tab PO BID 10 Days Proair Hfa 8.5 GM Inh (Albuterol Sulfate) 90 Mcg/Act Aer 2 Puff INH Q4-6H PRN 108 mcg/actuation Prednisone 20 Mg Tab 20 Mg PO BID 5 Days Review of Systems Except as stated in HPI: all other systems reviewed are Neg Musculoskeletal: Positive: Myalgias, Cramping Physical Exam Narrative GENERAL: Well-developed, well-nourished, alert male. Presenting in no acute distress, appears uncomfortable. SKIN: Warm and dry. HEAD: Atraumatic. Normocephalic. EYES: Pupils equal and round. No scleral icterus. No injection or drainage. ENT: No nasal bleeding or discharge. Mucous membranes pink and moist. NECK: Trachea midline. No JVD. CARDIOVASCULAR: Regular rate and rhythm. RESPIRATORY: No accessory muscle use. Clear to auscultation. Breath sounds equal bilaterally. GASTROINTESTINAL: Abdomen soft, non-tender, nondistended. Hepatic and splenic margins not palpable. MUSCULOSKELETAL: Extremities without clubbing, cyanosis, or edema. No obvious deformities. Tenderness to palpation paraspinal musculature in thoracic region. No spinal tenderness or step-off noted. NEUROLOGICAL: Awake and alert. No obvious cranial nerve deficits. Motor grossly within normal limits. Five out of 5 muscle strength in the arms and legs. Normal speech. PSYCHIATRIC: Appropriate mood and affect; insight and judgment normal. Data Data Last Documented VS Vital Signs Date Time Temp Pulse Resp B/P (MAP) Pulse Ox O2 Delivery O2 Flow Rate FiO2 07/31/17 12:59 65 17 104/50 (68) 96 Room Air 07/31/17 06:48 98.1 Orders Orders Ketorolac Inj (Toradol Inj) (07/31/17 07:30) Orphenadrine Inj (Norflex Inj) (07/31/17 07:30) Dexamethasone Inj (Decadron Inj) (07/31/17 07:30) Iv Access Insert/Monitor (07/31/17 07:31) Creatine Kinase (Cpk) (07/31/17 07:31) Basic Metabolic Panel (Bmp) (07/31/17 07:31) Complete Blood Count With Diff (07/31/17 07:31) Sodium Chlor 0.9% 1000 Ml Inj (Ns 1000 M (07/31/17 07:45) Orphenadrine Inj (Norflex Inj) (07/31/17 07:45) Ketorolac Inj (Toradol Inj) (07/31/17 07:45) Dexamethasone Inj (Decadron Inj) (07/31/17 07:45) CKMB (07/31/17 07:50) CKMB% (07/31/17 07:50) Sodium Chlor 0.9% 1000 Ml Inj (Ns 1000 M (07/31/17 10:00) Creatine Kinase (Cpk) (07/31/17 09:53) Sodium Chlor 0.9% 1000 Ml Inj (Ns 1000 M (07/31/17 10:00) CKMB (07/31/17 11:15) CKMB% (07/31/17 11:15) Sodium Chlor 0.9% 1000 Ml Inj (Ns 1000 M (07/31/17 12:45) Ed Discharge Order (07/31/17 13:00) Labs Laboratory Tests Test 07/31/17 07:50 07/31/17 11:15 White Blood Count 5.8 TH/MM3 Red Blood Count 4.96 MIL/MM3 Hemoglobin 15.2 GM/DL Hematocrit 44.6 % Mean Corpuscular Volume 90.0 FL Mean Corpuscular Hemoglobin 30.6 PG Mean Corpuscular Hemoglobin Concent 34.0 % Red Cell Distribution Width 12.9 % Platelet Count 222 TH/MM3 Mean Platelet Volume 8.9 FL Neutrophils (%) (Auto) 46.7 % Lymphocytes (%) (Auto) 41.6 % Monocytes (%) (Auto) 8.1 % Eosinophils (%) (Auto) 2.7 % Basophils (%) (Auto) 0.9 % Neutrophils # (Auto) 2.7 TH/MM3 Lymphocytes # (Auto) 2.4 TH/MM3 Monocytes # (Auto) 0.5 TH/MM3 Eosinophils # (Auto) 0.2 TH/MM3 Basophils # (Auto) 0.1 TH/MM3 CBC Comment DIFF FINAL Differential Comment Blood Urea Nitrogen 20 MG/DL Creatinine 0.99 MG/DL Random Glucose 83 MG/DL Calcium Level 9.5 MG/DL Sodium Level 137 MEQ/L Potassium Level 4.0 MEQ/L Chloride Level 104 MEQ/L Carbon Dioxide Level 22.0 MEQ/L Anion Gap 11 MEQ/L Estimat Glomerular Filtration Rate 91 ML/MIN Total Creatine Kinase 1692 U/L 1224 U/L Creatine Kinase MB 1.3 NG/ML 1.0 NG/ML Creatine Kinase MB % 0.1 % 0.1 % MDM Medical Decision Making Medical Screen Exam Complete: Yes Emergency Medical Condition: Yes Interpretation(s) Laboratory Tests Test 07/31/17 07:50 07/31/17 11:15 White Blood Count 5.8 TH/MM3 Red Blood Count 4.96 MIL/MM3 Hemoglobin 15.2 GM/DL Hematocrit 44.6 % Mean Corpuscular Volume 90.0 FL Mean Corpuscular Hemoglobin 30.6 PG Mean Corpuscular Hemoglobin Concent 34.0 % Red Cell Distribution Width 12.9 % Platelet Count 222 TH/MM3 Mean Platelet Volume 8.9 FL Neutrophils (%) (Auto) 46.7 % Lymphocytes (%) (Auto) 41.6 % Monocytes (%) (Auto) 8.1 % Eosinophils (%) (Auto) 2.7 % Basophils (%) (Auto) 0.9 % Neutrophils # (Auto) 2.7 TH/MM3 Lymphocytes # (Auto) 2.4 TH/MM3 Monocytes # (Auto) 0.5 TH/MM3 Eosinophils # (Auto) 0.2 TH/MM3 Basophils # (Auto) 0.1 TH/MM3 CBC Comment DIFF FINAL Differential Comment Blood Urea Nitrogen 20 MG/DL Creatinine 0.99 MG/DL Random Glucose 83 MG/DL Calcium Level 9.5 MG/DL Sodium Level 137 MEQ/L Potassium Level 4.0 MEQ/L Chloride Level 104 MEQ/L Carbon Dioxide Level 22.0 MEQ/L Anion Gap 11 MEQ/L Estimat Glomerular Filtration Rate 91 ML/MIN Total Creatine Kinase 1692 U/L 1224 U/L Creatine Kinase MB 1.3 NG/ML 1.0 NG/ML Creatine Kinase MB % 0.1 % 0.1 % Vital Signs Date Time Temp Pulse Resp B/P (MAP) Pulse Ox O2 Delivery O2 Flow Rate FiO2 07/31/17 06:48 98.1 67 18 109/67 (81) Differential Diagnosis Muscle strain versus muscle spasm versus rhabdomyolysis versus metabolic abnormality versus other Narrative Course Patient is a 27-year-old male presenting for evaluation of back pain however he has been fasting due to adan, in the differential would be rhabdomyolysis. IV access will be established, labs will be assessed. Patient will be given a liter of IV fluids as well as medications to attempt to alleviate his pain. CK elevated at 1692. Patient initially declined IV fluids until his labs resulted. He was advised on all findings and agreed to IV fluid hydration. Patient will receive a total of 2 L IV fluids, will recheck CK level after infusions are complete. Repeated CK level is 1224. Patient will have received a total of 4 L of IV fluids. He was advised to avoid strenuous activity/exercising while he is fasting. He was advised that they can cause renal failure as well as further electrolyte abnormalities. Patient verbalized understanding of instructions. Patient stated that he was going to drink today because he can do that if it is for health purposes. He was advised to return to emergency department for any new or worsening symptoms. Patient verbalized understanding of instructions. Patient stable for discharge. Findings and plan of care were discussed with my attending physician. Diagnosis Primary Impression: Rhabdomyolysis Qualified Codes: T79.6XXA - Traumatic ischemia of muscle, initial encounter Additional Impression: Back pain Qualified Codes: M54.6 - Pain in thoracic spine Referrals: Primary Care Physician 2 days Patient Instructions: Back Pain (ED), General Instructions, Rhabdomyolysis (ED) Additional Instructions: Take medications as directed Avoid strenuous activity/exercising well fasting Return to emergency department for any new or worsening symptoms Follow-up with your primary doctor Med/Other Pt SpecificInfo: Prescription(s) given Scripts Cyclobenzaprine (Flexeril) 10 Mg Tab 10 MG PO TID Y for MUSCLE SPASM, #30 TAB 0 Refills Prov: Hina Mcdonald 07/31/17 Ibuprofen (Ibuprofen) 600 Mg Tab 600 MG PO Q6H Y for Pain/Inflammation, #40 TAB 0 Refills Prov: Hina Mcdonald 07/31/17 Disposition: 01 DISCHARGE HOME Condition: Stable Hina Mcdonald Jul 31, 2017 07:35
[2017-07-31] MEDS ORDERED: KETOROLAC TROMETHAMINE 30 MG/ML (IVP) VIAL IV PUSH ONE (07:45)
[2017-07-31] MEDS ORDERED: ORPHENADRINE INJ 60 MG/2 ML AMP IV ONE (07:45)
[2017-07-31] MEDS ORDERED: DEXAMETHASONE SOD PHOS 20 MG/5 ML VIAL IV PUSH ONE (07:45)
[2017-07-31] MEDS ORDERED: SODIUM CHLOR 0.9% 1000 ML INJ 1,000 ML IV ONE ×4 (07:45→12:45)
[2017-07-31 09:15] LABS: AUTOMATED NEUTROPHIL # 2.7 TH/MM3 (1.8-7.7); BASOPHIL # 0.1 TH/MM3 (0-0.2); BASOPHIL % 0.9 % (0.0-2.0); EOSINOPHIL # 0.2 TH/MM3 (0-0.4); EOSINOPHIL % 2.7 % (0.0-4.0); HEMATOCRIT 44.6 % (39.0-51.0); HEMOGLOBIN 15.2 GM/DL (13.0-17.0); LYMPH % 41.6 % (9.0-44.0); LYMPHOCYTE # 2.4 TH/MM3 (1.0-4.8); MEAN CORPUSCULAR HEMOGLOBIN 30.6 PG (27.0-34.0); MEAN PLATELET VOLUME 8.9 FL (7.0-11.0); MONO % 8.1 % (0.0-8.0); MONOCYTE # 0.5 TH/MM3 (0-0.9); NEUT % 46.7 % (16.0-70.0); PLATELET COUNT 222 TH/MM3 (150-450); RED BLOOD COUNT 4.96 MIL/MM3 (4.50-5.90); RED CELL DISTRIBUTION WIDTH 12.9 % (11.6-17.2); WHITE BLOOD COUNT 5.8 TH/MM3 (4.0-11.0)
[2017-07-31 09:25] LABS: CALCIUM 9.5 MG/DL (8.5-10.1); CREATININE 0.99 MG/DL (0.60-1.30)
[2017-07-31 12:59] VITALS: BP 104/50; PULSE 65; RESP 17; O2SAT 96
[2017-07-31] MEDS ORDERED: CYCL10TA PO (13:04)
[2017-07-31] MEDS ORDERED: IBUP-232 PO (13:04)
[2017-07-31 14:13] VITALS: BP 119/65; PULSE 68; RESP 18; O2SAT 100
== END 2017-07-31 14:24 | disposition home or self-care (01) ==
LOC: NEPD 06:46
DX: M62.82 Rhabdomyolysis (principal); M54.6 Pain in thoracic spine
CPT/HCPCS: 80048; 82550; 82552; 85025; 96361; 96374; 96375; 99284; J1100; J1885; J2360; J7030